=== PATIENT | male | born 1950 | race Caucasian/White ===

== ENCOUNTER 2020-08-10 06:05 | Day surgery (SDC) | payer MEDICARE, BC ==
[~2020-08-10] VITALS: Ht 182.9 cm; Wt 84.8 kg
[~2020-08-10 06:05] MED LIST: ALPR.5 PO; Acetaminophen325 M1 PO; Augmentin 875-1 EACH PO; BENADRYL25 MG PO; Dazidox10 MG PO; EPIN.3I IM; FISH1000 PO; MELO7.5 PO; Multiple Vitam1 EAC1 PO; NAPR220 PO; Pepcid20 MG PO; Prednisone50 MG PO; TRAM50 PO; VIT C; [UNRECOGNIZED DRUG - OTHER]
--- NOTE | 2020-08-10 07:15 | NUR ---
Ambulatory in Day Surgery History, Chart, Medications and Allergies reviewed before start of procedure. Lungs clear T/O to Auscultation. Patient confirms NPO status and agrees with scheduled surgery. Patient reports completing Chlorhexadine shower X2 prior to admission to hospital. + VOID. Surgical site prepped with 2% Chlorhexidine cloth wipe.
[2020-08-10] MEDS ORDERED: Percocet 5-3251 EACH PO (16:24)
[2020-08-10] MEDS ORDERED: ASPI81CH PO (16:25)
--- NOTE | 2020-08-10 17:04 | NUR ---
DISCHARGE PT IS AMBULATING WELL, EATING, DRINKING, & VOIDING. CLEARED PT EASILY AND EXCITED TO GO HOME. DISCHARGE INSTRUCTIONS, SCRIPTS, AND POLAR PACK SENT W/ PT. ESCORTED OUT VIA W/C.
== END 2020-08-10 17:53 | disposition home or self-care (01) ==
LOC: ORSCMMR 06:05 → ORD 07:30 → SURS 10:03 → ORSCMMR 17:53
PROVIDERS: Orthopaedic Surgery
PROC: 0SRC0JA Replacement of Right Knee Joint with Synthetic Substitute, Uncemented, Open Approach (ICD-10-PCS; principal; 2020-08-10 07:30)
PROC: 8E0YXBZ Computer Assisted Procedure of Lower Extremity (ICD-10-PCS; principal; 2020-08-10 07:30)
DX: M17.11 Unilateral primary osteoarthritis, right knee (principal)
CPT/HCPCS: 73560-RT; 97110; 97116; 97162; A9270; C1776; J0171; J0461; J0690; J0735; J1885; J2250; J2704; J2795; J3010; J7120

== ENCOUNTER 2021-05-10 06:00 | Day surgery (SDC) | payer MEDICARE, BC ==
[~2021-05-10] VITALS: Ht 182.9 cm; Wt 87.9 kg
[~2021-05-10 06:00] MED LIST changes: +ASPI81CH PO; +FISH OIL 1,2001 EAC7 PO; +MULVITA PO; +Percocet 5-3251 EACH PO; +TURMERIC PO; +Ultram50 MG PO
[2021-05-10] MEDS ORDERED: Percocet 5-3251 EACH PO (14:40)
[2021-05-10] MEDS ORDERED: ASPI81CH PO (14:41)
--- NOTE | 2021-05-10 17:20 | NUR ---
DISCHARGE PT HAS CLEARED THERAPY. PAIN WELL CONTROLLED. EATING, DRINKING, & VOIDING WELL. SCRIPT PICKED UP BY PRIOR TO DC DUE TO "DIFFICULTY AT PHARMACY LATELY GETTING MEDS" DRSGS & POLAR PACK SENT w/ PT. ESCORTED OUT VIA W/C TO IN CAR.
--- NOTE | 2021-05-13 11:12 | NUR ---
05/13/21 1112 Prudence Iniguez VERIFICATIONS: EDIT CHART.
== END 2021-05-10 17:19 | disposition home or self-care (01) ==
LOC: ORSCMMR 06:00 → ORD 07:30 → ORSCMMR 07:30 → SURS 10:44 → ORSCMMR 17:19
PROVIDERS: Orthopaedic Surgery
PROC: 8E0Y0CZ Robotic Assisted Procedure of Lower Extremity, Open Approach (ICD-10-PCS; principal; 2021-05-10 07:30)
PROC: 0SRD0JA Replacement of Left Knee Joint with Synthetic Substitute, Uncemented, Open Approach (ICD-10-PCS; principal; 2021-05-10 07:30)
DX: M17.12 Unilateral primary osteoarthritis, left knee (principal); E78.5 Hyperlipidemia, unspecified; E03.9 Hypothyroidism, unspecified; I10 Essential (primary) hypertension; F41.9 Anxiety disorder, unspecified; Z79.899 Other long term (current) drug therapy
CPT/HCPCS: 27447; S2900; 73560-LT; 97110; 97116; 97162; A9270; C1776; J0171; J0690; J0735; J1885; J2250; J2370; J2704; J2795; J3010; J7120

== ENCOUNTER → 2023-10-21 | Outpatient (CLI) | payer MEDICARE, BC ==
[2023-10-21 09:51] LABS: BASOPHILS ABSOLUTE AUTO 0.05 K/mm3 (0.00-0.23); BASOPHILS PERCENT AUTO 1 % (0-2); EOSINOPHILS ABSOLUTE AUTO 0.19 K/mm3 (0.00-0.68); EOSINOPHILS PERCENT AUTO 3 % (0-6); Hematocrit 52.9 % (37.0-53.0); Hemoglobin 16.9 g/dL (13.5-17.5); IMMATURE GRAN ABSOLUTE AUTO 0.03 K/mm3 (0.00-0.10); IMMATURE GRAN PERCENT AUTO 1 % (0-1); LYMPHOCYTES PERCENT AUTO 22 % (21-46); MONOCYTES ABSOLUTE AUTO 0.38 K/mm3 (0.16-1.47); MONOCYTES PERCENT AUTO 6 % (4-13); Mean Corpuscular HGB Conc 31.9 g/dL (31.5-36.5); Mean Corpuscular Volume 84 fL (80-100); Mean Platelet Volume 9.4 fL (9.1-12.4); NEUTROPHILS ABSOLUTE AUTO 4.11 K/mm3 (1.96-9.15); NEUTROPHILS PERCENT AUTO 68 % (41-73); Platelet Count 166 K/mm3 (150-400); RDW Coefficient Variation 13.8 % (11.7-14.2); RDW Standard Deviation 41.8 fL (35.1-46.3); Red Blood Cell Count 6.27 M/mm3 (4.30-5.90); White Blood Cell Count 6.06 K/mm3 (4.00-11.30)
== END | disposition home or self-care (01) ==
LOC: LAB 09:47 → LAB SHORT 09:47
PROVIDERS: Family Medicine
DX: R06.00 Dyspnea, unspecified (principal)
CPT/HCPCS: 85025; 85379

== ENCOUNTER 2024-06-24 08:35 | Day surgery (SDC) | payer OTHER, MEDICARE, BC ==
[~2024-06-24] VITALS: Ht 182.9 cm; Wt 88.4 kg
[~2024-06-24 08:35] MED LIST changes: +Bupivacaine 0.5% HCl 5 MG/ML 30MLVIAL ONE; +Bupivacaine 0.5% W/EPI 1:200000 SDV 30 ML Vial ONE; +CeFAZolin Sodium 2,000 MG VIAL ONE; +Dexamethasone Sod Phos 10 MG/ML 1ML VIAL ONE; +FentaNYL Citrate 50 MCG/ML 2 ML Injection ONE; +Midazolam HCl 1MG / ML 2ML Vial ONE; +Ondansetron HCl 2 MG / ML 2ML Vial ONE; +propofoL 20 ML IV ONE
[2024-06-24] MEDS ORDERED: CYCLOBENZAPRINE5 MG PO (08:56)
[2024-06-24] MEDS ORDERED: Lactated Ringer's 1,000 ML IV ONE ×2 (09:18→09:54)
--- NOTE | 2024-06-24 09:39 | NUR ---
06/24/24 0939 JACQUES RENE TIMEOUT 0977 WITH ANESTHESIA, PT AND THIS RN AT BEDSIDE COMPLETED. T/O NERVE BLOCK SPO2 MONITORED, MAINTAINED SATS ON RA, WNL
[2024-06-24] MEDS ORDERED: Glycopyrrolate 0.2 MG/ML 5ML VIAL ONE (10:08)
[2024-06-24] MEDS ORDERED: FentaNYL Citrate 50 MCG/ML 2 ML Injection ONE (11:12)
[2024-06-24] MEDS ORDERED: OxyCODONE 5 mg/Acetamin 325 mg TABLET ONE (12:01)
[2024-06-24 12:22] VITALS: BP 156/85
== END 2024-06-24 12:26 | disposition home or self-care (01) ==
LOC: ORSCSDS 08:35
PROVIDERS: Podiatrist Foot & Ankle Surgery
PROC: 0QSM04Z Reposition Left Tarsal with Internal Fixation Device, Open Approach (ICD-10-PCS; principal; 2024-06-24 08:45)
PROC: 0SGL04Z Fusion of Left Tarsometatarsal Joint with Internal Fixation Device, Open Approach (ICD-10-PCS; principal; 2024-06-24 08:45)
DX: S93.325A Dislocation of tarsometatarsal joint of left foot, initial encounter (principal); W01.0XXA Fall on same level from slipping, tripping and stumbling without subsequent striking against object, initial encounter; G47.33 Obstructive sleep apnea (adult) (pediatric); Z96.653 Presence of artificial knee joint, bilateral; E78.5 Hyperlipidemia, unspecified; Z79.899 Other long term (current) drug therapy
CPT/HCPCS: A9270; C1713; C1769; J0690; J1100; J2250; J2405; J2704; J3010; J7120